=== PATIENT | female | born 1995 | race Two or more races ===

== ENCOUNTER 2018-03-02 06:09 | Inpatient (IN) | payer BC, OTHER ==
[~2018-03-02] VITALS: Ht 160 cm; Wt 67.6 kg
[2018-03-02] MEDS ORDERED: LACTATED RINGER'S 1,000 ML IV SCH (06:53)
[2018-03-02] MEDS ORDERED: LACT. RINGERS/OXYTOCIN 20UNITS 1,000 ML IV SCH (06:53)
[2018-03-02] MEDS ORDERED: PENICILLIN G POT 5MIL/D5 50ML 50 ML IV ONE (07:00)
[2018-03-02] MEDS ORDERED: LIDOCAINE 2% (LOCAL ANESTH.) PF 5ml SDV ID ONE (07:00)
[2018-03-02] MEDS ORDERED: PHISODERM TOP SOLN 240ML BTL TOP PRN (07:00)
[2018-03-02] MEDS ORDERED: WITCH HAZEL-GLYCERIN PAD TOP PRN (07:00)
[2018-03-02] MEDS ORDERED: DERMOPLAST 60ML BOTTLE TOP PRN (07:00)
[2018-03-02] MEDS ORDERED: METHYLERGONOVINE MALEATE 0.2 MG/ML AMP IM PRN (07:00)
[2018-03-02] MEDS ORDERED: CARBOPROST TROMETHAMINE 250 MCG/1ML VIAL IM PRN (07:00)
[2018-03-02] MEDS ORDERED: NALBUPHINE HCL 10 MG/1ml INJECTION IV PRN (07:00)
[2018-03-02 07:32] LABS: Eosinophils # (auto) 0.1 uL; Eosinophils % (auto) 0.8 % (0.0-7.0); Hemoglobin 12.1 g/dL (12.2-16.2); Monocytes # (auto) 0.7 uL; Monocytes % (auto) 5.2 % (0.0-12.0); White Blood Cell 12.9 10^3/uL (4.4-10.8)
[2018-03-02 07:34] LABS: Urine Bacteria NONE SEEN /hpf (None Seen); Urine Blood Negative /uL (Negative); Urine Specific Gravity 1.014 (1.001-1.035); Urine WBC 4 /hpf (0 - 5)
[2018-03-02 07:35] LABS: Basophils # (auto) 0 uL; Basophils % (auto) 0.4 % (0.0-2.0); Hematocrit 37.8 % (36.0-46.0); Lymphocytes # (auto) 1.9 uL; Lymphocytes % (auto) 14.9 % (10.0-50.0); Mean Corpuscular Hemoglobin 24.5 pg (28.0-32.0); Mean Corpuscular Volume 76.6 fL (80.0-100.0); Neutrophils # (auto) 10.1 uL; Neutrophils % (auto) 78.7 % (37.0-80.0); Nucleated Red Blood Cells % 0.1 %; Platelet Count (auto) 172 10^3/uL (140-450); Red Blood Cells 4.93 10^6/uL (4.0-5.20); Red Cell Distribution Width 16.1 % (11.8-14.3)
[2018-03-02 07:47] LABS: INR 0.9 (0.9-1.15); Partial Thromboplastin Time 26.6 sec (22.64-33.71); Prothrombin Time 9.8 sec (9.37-12.3)
[2018-03-02 08:05] LABS: Alcohol, Urine < 3.0 mg/dL (0-5); Amphetamine Screen, Urine NEGATIVE (NEGATIVE); Barbiturate Scree,Urine NEGATIVE (NEGATIVE); Benzodiazephine Screen, Urine NEGATIVE (NEGATIVE); Cannabinoid Screen, Urine NEGATIVE (NEGATIVE); Cocaine Screen, Urine NEGATIVE (NEGATIVE); Opiate Scree,Urine NEGATIVE (NEGATIVE); Phencyclidine Screen, Urine NEGATIVE (NEGATIVE)
[2018-03-02 08:14] LABS: Albumin 3.2 g/dL (3.4-5.0); BUN/Creatinine Ratio 14.1; Bilirubin, Total 0.2 mg/dL (0.2-1.0); Calcium 8.4 mg/dL (8.5-10.1); Potassium 3.9 mmol/L (3.5-5.1); Total Protein 7.3 g/dL (6.4-8.2); Uric Acid 6.1 mg/dL (2.6-6.0)
[2018-03-02] MEDS ORDERED: PROMETHAZINE HCL 25 MG/ML 1ML ONE (08:22)
[2018-03-02] MEDS ORDERED: ePHEDrine SULFATE 50 MG/ML AMP IV ONE ×2 (08:30→09:30)
[2018-03-02] MEDS ORDERED: PROMETHAZINE HCL 25 MG/ML 1ML IV PRN (08:30)
[2018-03-02] MEDS ORDERED: fentaNYL W ROPIVACAINE 150 ML EPI SCH ×2 (08:30→09:30)
[2018-03-02] MEDS ORDERED: LIDOCAINE HCL 2 %PF INJ 10ML AMP IJ ONE (08:30)
[2018-03-02] MEDS ORDERED: NALOXONE HCL 0.4 MG/ML VIAL IV ONE ×2 (08:30→09:30)
[2018-03-02] MEDS ORDERED: fentaNYL CITRATE 100 MCG/2 ML VL IV ONE (08:30)
[2018-03-02] MEDS ORDERED: SODIUM CHLORIDE 0.9% 500 ML IV PRN (09:20)
[2018-03-02] MEDS ORDERED: LIDOCAINE 2% (LOCAL ANESTH.) PF 5ml SDV ONE (10:01)
[2018-03-02] MEDS ORDERED: ONDANSETRON HCL 4 MG/2 ML VIAL IV PRN (10:30)
[2018-03-02] MEDS ORDERED: ACETAMINOPHEN 325 MG TAB PO PRN (10:30)
[2018-03-02] MEDS ORDERED: DOCUSATE CALCIUM 240 MG CAP PO SCH (10:41)
[2018-03-02] MEDS ORDERED: PENICILLIN G POTASSIUM 2,500,000 UNITS in D5W 5% 50 ML IV SCH (11:00)
[2018-03-02] MEDS ORDERED: PREN-96 PO (13:42)
[2018-03-02 15:00] VITALS: BP 115/59
[2018-03-02 18:58] VITALS: BP 110/64
[2018-03-02] MEDS: IBUPROFEN 600 MG TAB PO PRN (19:19)
[2018-03-02 23:00] VITALS: BP 98/53
[2018-03-03 02:38] VITALS: BP 106/68
[2018-03-03] MEDS: IBUPROFEN 600 MG TAB PO PRN (05:21)
[2018-03-03 07:00] VITALS: BP 111/70
[2018-03-03 11:00] VITALS: BP 117/70
[2018-03-04 08:06] LABS: RPR Non Reactive (Non Reactive)
== END 2018-03-03 11:40 | disposition home or self-care (01) | DRG 775 ==
LOC: LDRP 06:09 → OBSVTOIN 06:09 → LDRP 07:53
PROVIDERS: ADMIT Obstetrics & Gynecology; ATTEND Obstetrics & Gynecology
PROC: 0KQM0ZZ Repair Perineum Muscle, Open Approach (ICD-10-PCS; principal; 2018-03-02)
PROC: 10E0XZZ Delivery of Products of Conception, External Approach (ICD-10-PCS; 2018-03-02)
PROC: 3E0R3BZ Introduction of Anesthetic Agent into Spinal Canal, Percutaneous Approach (ICD-10-PCS; 2018-03-02)
PROC: 00HU33Z Insertion of Infusion Device into Spinal Canal, Percutaneous Approach (ICD-10-PCS; 2018-03-02)
PROC: 0W8NXZZ Division of Female Perineum, External Approach (ICD-10-PCS; 2018-03-02)
DX: O69.81X0 Labor and delivery complicated by cord around neck, without compression, not applicable or unspecified (principal); O70.1 Second degree perineal laceration during delivery; Z37.0 Single live birth; Z3A.38 38 weeks gestation of pregnancy; Z90.49 Acquired absence of other specified parts of digestive tract
CPT/HCPCS: 36415; 59025; 59409; 76805; 80053; 80307; 81001; 81002; 84550; 85025; 85610; 85730; 86592; 86762; 86850; 86900; 86901; 87340; 96365; 96366; J2540; J2590; J3010; J7060

== ENCOUNTER 2021-01-01 15:50 | Observation (INO) | payer BC ==
[~2021-01-01] VITALS: Ht 162.6 cm; Wt 68.9 kg
[~2021-01-01 15:50] MED LIST: PREN-96 PO
[2021-01-01] MEDS ORDERED: BETAMETHASONE ACET (6MG/ML) 5ML VIAL IM ONE (16:30)
[2021-01-01] MEDS ORDERED: AMPICILLIN SOD 2GM INJ 2 GM in SODIUM CHL 0.9% 100 ML IV ONE (16:30)
[2021-01-01] MEDS ORDERED: LACTATED RINGER'S 1,000 ML IV SCH (16:30)
[2021-01-01] MEDS ORDERED: TERBUTALINE SULFATE 1 MG/ML 1ML VIAL SC ONE (16:31)
[2021-01-01] MEDS ORDERED: ACET-1156 PO (16:55)
[2021-01-01] MEDS ORDERED: LACTATED RINGER'S 1,000 ML IV ONE (17:15)
[2021-01-01 17:18] LABS: Basophils # (auto) 0 10 ^3/uL (0-0.2); Eosinophils % (auto) 0.4 % (0.0-7.0); Hematocrit 35.9 % (36.0-46.0); Hemoglobin 11.9 g/dL (12.2-16.2); Lymphocytes # (auto) 2.4 10 ^3/uL (0.4-5.4); Mean Corpuscular Hemoglobin 26.5 pg (28.0-32.0); Mean Corpuscular Hgb Conc. 33.1 g/dL (32.0-36.0); Mean Corpuscular Volume 79.9 fL (80.0-100.0); Monocytes # (auto) 0.8 10 ^3/uL (0-1.3); Neutrophils # (auto) 9.4 10 ^3/uL (1.6-8.6); Platelet Count (auto) 154 10^3/uL (140-450); Red Cell Distribution Width 13.4 % (11.8-14.3)
[2021-01-01 17:19] LABS: Basophils % (auto) 0.2 % (0.0-2.0); Eosinophils # (auto) 0 10 ^3/uL (0-0.8); Lymphocytes % (auto) 19.1 % (10.0-50.0); Monocytes % (auto) 6.3 % (0.0-12.0); Nucleated Red Blood Cells % 0.1 %; Red Blood Cells 4.49 10^6/uL (4.0-5.20); White Blood Cell 12.8 10^3/uL (4.4-10.8)
[2021-01-01] MEDS: TERBUTALINE SULFATE 1 MG/ML 1ML VIAL SC SCH ×3 (17:19→17:47)
[2021-01-01 17:27] LABS: Urine Bacteria NONE SEEN /hpf (None Seen); Urine Blood Negative /uL (Negative); Urine Mucus FEW (None Seen); Urine Specific Gravity 1.006 (1.001-1.035); Urine WBC <1 /hpf (0 - 5)
[2021-01-01 17:29] LABS: Alcohol, Urine < 3.0 mg/dL (0-10); Amphetamine Screen, Urine NEGATIVE (NEGATIVE); Barbiturate Scree,Urine NEGATIVE (NEGATIVE); Benzodiazephine Screen, Urine NEGATIVE (NEGATIVE); Cannabinoid Screen, Urine NEGATIVE (NEGATIVE); Cocaine Screen, Urine NEGATIVE (NEGATIVE); Opiate Scree,Urine NEGATIVE (NEGATIVE); Phencyclidine Screen, Urine NEGATIVE (NEGATIVE)
[2021-01-01 17:29] LABS: Calcium 8.5 mg/dL (8.5-10.1); Potassium 3.1 mmol/L (3.5-5.1)
[2021-01-01 17:32] LABS: BUN/Creatinine Ratio 13.1; Bilirubin, Total 0.3 mg/dL (0.2-1.0); INR 0.95 (0.9-1.15); Partial Thromboplastin Time 25.4 sec (23.0-31.2)
[2021-01-01] MEDS ORDERED: NIFEdipine 10 MG CAP PO ONE (18:00)
[2021-01-01] MEDS ORDERED: POTASSIUM CHL 20 Meq TABLET PO ONE (18:00)
[2021-01-01] MEDS ORDERED: NIF10C GT (19:43)
[2021-01-03 06:06] LABS: RPR Non Reactive (Non Reactive)
== END 2021-01-01 20:30 | disposition home or self-care (01) ==
LOC: LDRP 15:50
PROVIDERS: ADMIT Obstetrics & Gynecology; ATTEND Obstetrics & Gynecology
DX: O60.03 Preterm labor without delivery, third trimester (principal); Z20.822 Contact with and (suspected) exposure to COVID-19; Z3A.34 34 weeks gestation of pregnancy; Z79.899 Other long term (current) drug therapy
CPT/HCPCS: 36415; 59025; 76805; 76815; 80053; 80307; 81001; 81002; 84112; 85025; 85610; 85730; 86592; 86850; 86900; 86901; 87426; 94760; 96361; 96365; 96372; G0378; J0290; J0702; J3105; Q0114; U0003; 96360

== ENCOUNTER 2021-01-02 16:35 | Observation (INO) | payer BC ==
[~2021-01-02] VITALS: Ht 162.6 cm; Wt 68.9 kg
[~2021-01-02 16:35] MED LIST changes: +ACET-1156 PO; +NIF10C GT
[2021-01-02] MEDS ORDERED: BETAMETHASONE ACET (6MG/ML) 5ML VIAL IM ONE (17:15)
== END 2021-01-02 17:48 | disposition home or self-care (01) ==
LOC: LDRP 16:35
PROVIDERS: ADMIT Specialist; ATTEND Specialist
DX: Z34.93 Encounter for supervision of normal pregnancy, unspecified, third trimester (principal); Z3A.34 34 weeks gestation of pregnancy
CPT/HCPCS: 59025; 81002; 96372; G0378; J0702

== ENCOUNTER 2021-01-09 09:33 | Observation (INO) | payer BC | END 2021-01-09 10:27 | disposition home or self-care (01) | LOC: LDRP 09:33 | PROVIDERS: ADMIT Obstetrics & Gynecology; ATTEND Obstetrics & Gynecology | DX: O60.03 Preterm labor without delivery, third trimester (principal); Z3A.35 35 weeks gestation of pregnancy; Z79.899 Other long term (current) drug therapy | CPT/HCPCS: 59025; 76818; 81002; G0378 ==

== ENCOUNTER 2021-01-16 10:24 | Observation (INO) | payer BC | END 2021-01-16 12:14 | disposition home or self-care (01) | LOC: LDRP 10:24 | PROVIDERS: ADMIT Obstetrics & Gynecology; ATTEND Obstetrics & Gynecology | DX: O60.03 Preterm labor without delivery, third trimester (principal); Z3A.36 36 weeks gestation of pregnancy | CPT/HCPCS: 59025; 76818; 81002; G0378 ==

== ENCOUNTER 2021-01-24 10:50 | Observation (INO) | payer BC ==
[~2021-01-24 10:50] MED LIST changes: -NIF10C GT
== END 2021-01-24 12:00 | disposition home or self-care (01) ==
LOC: LDRP 10:50
PROVIDERS: ADMIT Obstetrics & Gynecology; ATTEND Obstetrics & Gynecology
DX: O62.9 Abnormality of forces of labor, unspecified (principal); O26.893 Other specified pregnancy related conditions, third trimester; N89.8 Other specified noninflammatory disorders of vagina; Z3A.37 37 weeks gestation of pregnancy
CPT/HCPCS: 59025; 81002; G0378

== ENCOUNTER 2021-01-25 13:55 | Observation (INO) | payer BC ==
[~2021-01-25] VITALS: Ht 162.6 cm; Wt 72.6 kg
[~2021-01-25 13:55] MED LIST changes: -ACET-1156 PO
== END 2021-01-25 17:42 | disposition home or self-care (01) ==
LOC: LDRP 13:55
PROVIDERS: ADMIT Obstetrics & Gynecology; ATTEND Obstetrics & Gynecology
DX: O62.9 Abnormality of forces of labor, unspecified (principal); Z3A.38 38 weeks gestation of pregnancy
CPT/HCPCS: 59025; 81002; G0378

== ENCOUNTER 2021-01-26 05:02 | Inpatient (IN) | payer BC ==
[~2021-01-26] VITALS: Ht 162.6 cm; Wt 72.6 kg
[2021-01-26] MEDS ORDERED: PENICILLIN G POT 5MIL/D5 50ML 50 ML IV ONE ×2 (05:21→05:30)
[2021-01-26] MEDS ORDERED: TERBUTALINE SULFATE 1 MG/ML 1ML VIAL SC ONE (05:30)
[2021-01-26] MEDS ORDERED: LACT. RINGERS/OXYTOCIN 20UNITS 1,000 ML IV SCH (05:30)
[2021-01-26] MEDS ORDERED: LACTATED RINGER'S 1,000 ML IV SCH (05:30)
[2021-01-26] MEDS ORDERED: PROMETHAZINE HCL 25 MG/ML 1ML IV PRN (05:30)
[2021-01-26] MEDS ORDERED: LACT. RINGERS/OXYTOCIN 20UNITS 1,000 ML IV ONE ×4 (05:30→09:48)
[2021-01-26] MEDS ORDERED: BUTORPHANOL TARTRATE 2 MG/1 ML VIAL IV PRN (05:30)
[2021-01-26] MEDS ORDERED: LIDOCAINE 2%HCL (LOCAL ANESTH.) INJ 20ML MDV IJ ONE ×2 (05:30→07:15)
[2021-01-26] MEDS ORDERED: LIDOCAINE 2%HCL (LOCAL ANESTH.) INJ 20ML MDV ONE (05:35)
[2021-01-26] MEDS ORDERED: WITCH HAZEL-GLYCERIN PAD TOP ONE (05:36)
[2021-01-26] MEDS ORDERED: DERMOPLAST 60ML BOTTLE TOP ONE (05:36)
[2021-01-26] MEDS ORDERED: METHYLERGONOVINE MALEATE 0.2 MG/ML AMP IM ONE ×2 (05:36→09:48)
[2021-01-26] MEDS ORDERED: PHISODERM TOP SOLN 240ML BTL TOP ONE (05:36)
[2021-01-26 06:15] LABS: Basophils # (auto) 0 10 ^3/uL (0-0.2); Basophils % (auto) 0.4 % (0.0-2.0); Eosinophils # (auto) 0.1 10 ^3/uL (0-0.8); Eosinophils % (auto) 0.9 % (0.0-7.0); Hematocrit 33.6 % (36.0-46.0); Hemoglobin 11.3 g/dL (12.2-16.2); Lymphocytes % (auto) 18.9 % (10.0-50.0); Mean Corpuscular Hemoglobin 25.9 pg (28.0-32.0); Mean Corpuscular Hgb Conc. 33.5 g/dL (32.0-36.0); Mean Corpuscular Volume 77.2 fL (80.0-100.0); Monocytes # (auto) 0.7 10 ^3/uL (0-1.3); Monocytes % (auto) 7.2 % (0.0-12.0); Neutrophils # (auto) 7.6 10 ^3/uL (1.6-8.6); Neutrophils % (auto) 72.6 % (37.0-80.0); Nucleated Red Blood Cells % 0.1 %; Platelet Count (auto) 122 10^3/uL (140-450); Red Blood Cells 4.35 10^6/uL (4.0-5.20); Red Cell Distribution Width 14.6 % (11.8-14.3); White Blood Cell 10.5 10^3/uL (4.4-10.8)
[2021-01-26] MEDS: DERMOPLAST 60ML BOTTLE TOP PRN (06:28)
[2021-01-26] MEDS: WITCH HAZEL-GLYCERIN PAD TOP PRN (06:28)
[2021-01-26] MEDS: PHISODERM TOP SOLN 240ML BTL TOP PRN (06:28)
[2021-01-26 06:29] LABS: INR 0.92 (0.9-1.15); Partial Thromboplastin Time 27.2 sec (23.0-31.2)
[2021-01-26 06:32] LABS: Albumin 2.6 g/dL (3.4-5.0); Calcium 7.9 mg/dL (8.5-10.1); Potassium 3.8 mmol/L (3.5-5.1)
[2021-01-26 06:35] LABS: BUN/Creatinine Ratio 13.6; Bilirubin, Total 0.3 mg/dL (0.2-1.0)
[2021-01-26] MEDS ORDERED: IBUPROFEN 600 MG TAB PO PRN (07:30)
[2021-01-26] MEDS ORDERED: ACETAMINOPHEN 325 MG TAB PO PRN (07:30)
[2021-01-26 07:50] LABS: Urine Bacteria NONE SEEN /hpf (None Seen); Urine Blood 2+ /uL (Negative); Urine Specific Gravity 1.031 (1.001-1.035); Urine WBC <1 /hpf (0 - 5)
[2021-01-26 08:07] LABS: Alcohol, Urine < 3.0 mg/dL (0-10); Amphetamine Screen, Urine NEGATIVE (NEGATIVE); Barbiturate Scree,Urine NEGATIVE (NEGATIVE); Benzodiazephine Screen, Urine NEGATIVE (NEGATIVE); Cannabinoid Screen, Urine NEGATIVE (NEGATIVE); Cocaine Screen, Urine NEGATIVE (NEGATIVE); Opiate Scree,Urine NEGATIVE (NEGATIVE); Phencyclidine Screen, Urine NEGATIVE (NEGATIVE)
[2021-01-26] MEDS ORDERED: IBUPROFEN 400 MG TAB PO PRN (08:45)
[2021-01-26] MEDS: IBUPROFEN 800 MG TAB PO PRN ×2 (09:12→21:02)
[2021-01-26] MEDS ORDERED: miSOPROStol 100 mcg TAB SL ONE (09:15)
[2021-01-26] MEDS ORDERED: miSOPROStol 100 mcg TAB PR ONE (09:15)
[2021-01-26] MEDS ORDERED: PENICILLIN G POTASSIUM 2,500,000 UNITS in D5W 5% 50 ML IV SCH (09:30)
[2021-01-26] MEDS ORDERED: METHYLERGONOVINE MALEATE 0.2 MG/ML AMP IM PRN (10:15)
[2021-01-26] MEDS ORDERED: LACT. RINGER'S W OXYTOCIN 20UNITS/1000 ML IV ONE (10:45)
[2021-01-26 11:00] VITALS: BP 117/71
[2021-01-26 15:15] VITALS: BP 106/66
[2021-01-26 19:00] VITALS: BP 103/62
[2021-01-26 23:00] VITALS: BP 96/62
[2021-01-27 03:00] VITALS: BP 111/60
[2021-01-27 07:00] VITALS: BP 100/64
[2021-01-27 07:06] LABS: RPR Non Reactive (Non Reactive)
[2021-01-27] MEDS: DERMOPLAST 60ML BOTTLE TOP PRN (09:48)
[2021-01-27] MEDS: IBUPROFEN 800 MG TAB PO PRN (09:48)
[2021-01-27] MEDS: PHISODERM TOP SOLN 240ML BTL TOP PRN (09:48)
[2021-01-27] MEDS: WITCH HAZEL-GLYCERIN PAD TOP PRN (09:48)
[2021-01-27] MEDS ORDERED: LACT. RINGER'S W OXYTOCIN 20UNITS/1000 ML IV SCH (10:00)
[2021-01-27 10:07] VITALS: BP 105/71
== END 2021-01-27 10:22 | disposition home or self-care (01) | DRG 807 ==
LOC: UNDOADMOB 05:02 → OBSVTOIN 05:02 → LDRP 05:02 → INTOOBSV 05:02 → OBSVTOIN 05:26 → LDRP 05:26
PROVIDERS: ADMIT Specialist; ATTEND Specialist
PROC: 10E0XZZ Delivery of Products of Conception, External Approach (ICD-10-PCS; principal; 2021-01-26)
DX: O76 Abnormality in fetal heart rate and rhythm complicating labor and delivery (principal); Z37.0 Single live birth; O99.824 Streptococcus B carrier state complicating childbirth; Z3A.38 38 weeks gestation of pregnancy; Z20.822 Contact with and (suspected) exposure to COVID-19
CPT/HCPCS: 36415; 80053; 80307; 81001; 85025; 85610; 85730; 86592; 86850; 86900; 86901; 87426; 96360; 96365; 96366; G0378; J2540; J2590; J7060